=== PATIENT | male | born 1950 | race Caucasian/White ===

== ENCOUNTER 2020-10-26 11:06 | Emergency (ER) | payer MEDICARE, OTHER ==
--- NOTE | 2020-10-26 11:19 | EDM.PDOC ---
ED HPI GENERAL MEDICAL PROBLEM - General Chief Complaint: Chest Pain Stated Complaint: CHEST PAIN Time Seen by Provider: 10/26/20 11:10 Source of Information: Reports: EMS History Limitations: Reports: No Limitations - History of Present Illness INITIAL COMMENTS - FREE TEXT/NARRATIVE: patient with a significant c/o CAD, who presented to the ER by EMS due to a c/o dizziness and syncope. He was fishing on a boat when he experience sudden onset of dizziness - he thought that he was experiencing a heart attack - before he passed out for few seconds. His fishing buddies who witnessed the incidence, gave him nitro under the tongue - and reports that he became alert and oriented. Denies CP pr SOB. h/o multiple stents in the pasts, and strokes. Onset: Sudden Duration: Minutes: (40) Left Pain Score (Numeric/FACES): 7 - Related Data Allergies Allergy/AdvReac Type Severity Reaction Status Date / Time celecoxib [From Celebrex] Allergy Other Verified 10/26/20 12:13 chlorpromazine Allergy Hives Verified 10/26/20 12:13 [From Thorazine] Home Meds: Home Meds . [Unable to Verify Home Med List] 10/26/20 [History] ED ROS GENERAL - Review of Systems Review Of Systems: See Below HEENT: Reports: No Symptoms Respiratory: Reports: No Symptoms Cardiovascular: Reports: No Symptoms GI/Abdominal: Reports: No Symptoms : Reports: No Symptoms Musculoskeletal: Reports: No Symptoms Skin: Reports: No Symptoms ED EXAM, GENERAL - Physical Exam Exam: See Below Exam Limited By: No Limitations General Appearance: Alert, WD/WN, No Apparent Distress Eye Exam: Right Eye: PERRL, Bilateral Eye: EOMI Respiratory/Chest: No Respiratory Distress, Lungs Clear Cardiovascular: Normal Peripheral Pulses, Regular Rate, Rhythm, Bradycardia GI/Abdominal: Normal Bowel Sounds, Soft, Non-Tender Extremities: Normal Inspection Neurological: Alert, Oriented, Normal Cognition, Normal Gait, No Motor/Sensory Deficits Psychiatric: Normal Affect Skin Exam: Warm, Dry #1 Interpretation EKG Date: 10/26/20 Rhythm: NSR Rate (Beats/Min): 55 [place]: Normal P-Wave: Present QRS: Normal ST-T: Normal QT: Normal Comparison: NA - No Prior EKG Course - Vital Signs Last Recorded V/S: Last Vital Signs Temp Pulse 59 L 10/26/20 15:06 Resp 16 10/26/20 11:51 BP 143/70 H 10/26/20 15:06 Pulse Ox 95 10/26/20 11:51 - Orders/Labs/Meds Orders: Active Orders 24 hr Category Date Time Status EKG Documentation Completion [RC] ASDIRECTED Care 10/26/20 11:15 Active Promethazine [Phenergan] 12.5 mg Med 10/26/20 12:15 Active Sodium Chloride 0.9% [Normal Saline] 50 ml IV Q6H Sodium Chloride 0.9% [Saline Flush] Med 10/26/20 11:14 Active 10 ml FLUSH ASDIRECTED PRN Saline Lock Insert [OM.PC] Routine Oth 10/26/20 11:14 Ordered Medication Orders Promethazine HCl 12.5 mg/ (Sodium Chloride) 50.5 mls @ 200 mls/hr IV Q6H PRN PRN Reason: Nausea/Vomiting Last Admin: 10/26/20 13:02 Dose: 200 mls/hr Documented by: HAWA Sodium Chloride (Sodium Chloride 0.9% 10 Ml Syringe) 10 ml FLUSH ASDIRECTED PRN PRN Reason: Keep Vein Open Last Admin: 10/26/20 12:41 Dose: 10 ml Documented by: ERIN Labs: Laboratory Tests 10/26/20 10/26/20 10/26/20 Range/Units 11:14 11:14 14:29 WBC 9.1 (4.0-11.0) K/uL RBC 4.20 L (4.50-6.50) M/uL Hgb 13.6 (13.0-18.0) g/dL Hct 40.2 (40.0-54.0) % MCV 96 (76-96) fL MCH 32.4 H (27.0-32.0) pg MCHC 33.8 (31.0-35.0) g/dL RDW 12.5 (11.0-16.0) % Plt Count 153 (150-400) K/uL MPV 11.6 H (6.0-10.0) fL Sodium 137 (136-145) mmol/L Potassium 3.3 L (3.5-5.1) mmol/L Chloride 101 (98-107) mmol/L Carbon Dioxide 27.1 (21.0-32.0) mmol/L Anion Gap 12.2 (5.0-15.0) mmol/L BUN 15 (8-26) mg/dL Creatinine 1.25 (0.70-1.30) mg/dL Est Cr Clr Drug Dosing TNP Estimated GFR (MDRD) 57 L (>60) MLS/MIN BUN/Creatinine Ratio 12.0 (6-25) Glucose 115 H (74-100) mg/dL Calcium 8.6 (8.5-10.1) mg/dL Troponin I < 0.017 < 0.017 (0.000-0.060) ng/mL Meds: Medications Generic Name Dose Route Start Last Admin Trade Name Freq PRN Reason Stop Dose Admin Promethazine HCl 12.5 mg/ 50.5 mls @ 200 mls/hr 10/26/20 12:15 10/26/20 13:02 Sodium Chloride IV 200 mls/hr Q6H PRN Administration Nausea/Vomiting Sodium Chloride 10 ml 10/26/20 11:14 10/26/20 12:41 Sodium Chloride 0.9% 10 Ml Syringe FLUSH 10 ml ASDIRECTED PRN Administration Keep Vein Open Discontinued Medications Generic Name Dose Route Start Last Admin Trade Name Freq PRN Reason Stop Dose Admin Baclofen 10 mg 10/26/20 14:16 10/26/20 14:27 Baclofen 10 Mg Tab PO 10/26/20 14:17 10 mg ONETIME ONE Administration Diphenhydramine HCl 25 mg 10/26/20 12:15 10/26/20 12:47 Diphenhydramine 50 Mg/Ml Sdv IVPUSH 10/26/20 12:16 25 mg ONETIME ONE Administration Diphenhydramine HCl Confirm 10/26/20 12:52 10/26/20 12:46 Diphenhydramine 50 Mg/Ml Sdv Administered 10/26/20 12:53 Not Given Dose 50 mg .ROUTE .STK-MED ONE Sodium Chloride 1,000 mls @ 500 mls/hr 10/26/20 11:15 10/26/20 12:15 Normal Saline IV 10/26/20 13:14 500 mls/hr .BOLUS ONE Administration Potassium Chloride 10 meq/ 50 mls @ 50 mls/hr 10/26/20 11:59 10/26/20 12:37 Premix IV 10/26/20 12:58 50 mls/hr ONETIME ONE Administration Potassium Chloride Confirm 10/26/20 12:25 10/26/20 12:40 Kcl In Water 10 Meq/50 Ml Administered 10/26/20 12:26 Not Given Dose 50 mls @ as directed .ROUTE .STK-MED ONE Ketorolac Tromethamine 15 mg 10/26/20 13:16 10/26/20 13:23 Ketorolac 60 Mg/2 Ml Sdv IVPUSH 10/26/20 13:17 15 mg ONETIME ONE Administration Ketorolac Tromethamine Confirm 10/26/20 13:28 10/26/20 13:24 Ketorolac 30 Mg/Ml Sdv Administered 10/26/20 13:29 Not Given Dose 30 mg .ROUTE .STK-MED ONE Potassium Chloride 20 meq 10/26/20 11:59 10/26/20 12:20 Potassium Chloride 20 Meq Tab.Er PO 10/26/20 12:00 20 meq ONETIME ONE Administration Promethazine HCl Confirm 10/26/20 12:53 10/26/20 13:00 Promethazine 25 Mg/Ml Sdv Administered 10/26/20 12:54 Not Given Dose 25 mg .ROUTE .STK-MED ONE - Re-Assessments/Exams Free Text/Narrative Re-Assessment/Exam: IV line was started EKG showed NSR with slight bradycardia labs were ordered including CBC, BMP and trop - WNL, and trop WNL, except for mild hypokalemia. CXR WNL IVF was started for left chest wall pain - IV toradol was given with significant improvement in symptoms Patient was monitored in the ER for several hours - remained symptomatic free ambulating without problems tolerating PO intake Trop was repeated and still WNL Departure - Departure Time of Disposition: 15:22 Disposition: Home, Self-Care 01 Condition: Good Clinical Impression: Syncopal episodes Qualifiers: Syncope type: vasovagal syncope Qualified Code(s): R55 - Syncope and collapse Instructions: Near-Syncope, [id number] Forms: ED Department Discharge Sepsis Event Note (ED) - Focused Exam Vital Signs: Vital Signs Pulse Resp BP Pulse Ox 10/26/20 15:06 59 L 143/70 H 10/26/20 14:50 58 L 162/80 H 10/26/20 13:59 60 162/95 H 10/26/20 13:30 55 L 145/79 H 10/26/20 11:51 55 L 16 143/72 H 95 - Problem List & Annotations (1) Syncopal episodes SNOMED Code(s): 264168931 Code(s): R55 - SYNCOPE AND COLLAPSE Status: Acute Priority: Low Current Visit: Yes Qualifiers: Syncope type: vasovagal syncope Qualified Code(s): R55 - Syncope and collapse - Problem List Review Problem List Initiated/Reviewed/Updated: Yes - My Orders Last 24 Hours: My Active Orders 10/26/20 11:14 Sodium Chloride 0.9% [Saline Flush] 10 ml FLUSH ASDIRECTED PRN Saline Lock Insert [OM.PC] Routine 10/26/20 11:15 EKG Documentation Completion [RC] ASDIRECTED 10/26/20 12:15 Promethazine [Phenergan] 12.5 mg Sodium Chloride 0.9% [Normal Saline] 50 ml IV Q6H - Assessment/Plan Last 24 Hours: My Active Orders 10/26/20 11:14 Sodium Chloride 0.9% [Saline Flush] 10 ml FLUSH ASDIRECTED PRN Saline Lock Insert [OM.PC] Routine 10/26/20 11:15 EKG Documentation Completion [RC] ASDIRECTED 10/26/20 12:15 Promethazine [Phenergan] 12.5 mg Sodium Chloride 0.9% [Normal Saline] 50 ml IV Q6H Plan: - continue home medications as before - increase fluids intake - follow up with your PCP in 3-10 days as needed - return to the ER if symptoms got worse or any concerns
[2020-10-26] MEDS: Sodium Chloride 0.9% 1,000 ML IV ONE (12:15)
[2020-10-26] MEDS: Potassium Chloride 20 MEQ Tab.ER PO ONE (12:20)
[2020-10-26] MEDS: Potassium Chloride Riders 10 MEQ in Premix Bag 1 BAG IV ONE (12:37)
[2020-10-26] MEDS: Potassium Chloride Riders 50 ML ONE (12:40)
[2020-10-26] MEDS: Sodium Chloride 0.9% 10 ML Syringe FLUSH PRN (12:41)
[2020-10-26] MEDS: diphenhydrAMINE 50 MG/ML SDV ONE (12:46)
[2020-10-26] MEDS: diphenhydrAMINE 50 MG/ML SDV IVPUSH ONE (12:47)
[2020-10-26] MEDS: Promethazine 25 MG/ML SDV ONE (13:00)
[2020-10-26] MEDS: Promethazine 12.5 MG in Sodium Chloride 0.9% 50 ML IV PRN (13:02)
[2020-10-26] MEDS: Ketorolac 60 MG/2 ML SDV IVPUSH ONE (13:23)
[2020-10-26] MEDS: Ketorolac 30 MG/ML SDV ONE (13:24)
[2020-10-26] MEDS: Baclofen 10 MG Tab PO ONE (14:27)
--- NOTE | 2020-10-26 14:38 | CR ---
CLINICAL DATA: CP. PORTABLE CHEST, 26 OCTOBER 2020: No priors. The patient is status post median sternotomy. The heart is mildly enlarged. There is calcification of the aortic arch. There are atelectatic changes at both lung bases. The lungs are otherwise clear. No pneumothorax. No pleural effusions. Job: [id number] MTDD
== END 2020-10-26 15:40 | disposition home or self-care (01) ==
LOC: LB.ED 11:06
DX: R55 Syncope and collapse (principal); Z88.6 Allergy status to analgesic agent; Z88.8 Allergy status to other drugs, medicaments and biological substances
CPT/HCPCS: 36415; 71045; 80048; 84484; 85027; 93005; 96365; 96367; 96375; 99284-25; A0425; A0429; A9270-GY; J1200; J1885; J2550; J3480; J7030